=== PATIENT | male | born 1980 | race Caucasian/White ===

== ENCOUNTER 2016-08-21 07:27 | Emergency (ER) | payer BC ==
[2016-08-21 07:35] VITALS: BP 131/88
--- NOTE | 2016-08-21 08:26 | Emergency Department Report ---
ED Back Pain/Injury HPI - General Chief Complaint: Back Pain/Injury Stated Complaint: BACK PAIN Time Seen by Provider: 08/21/16 08:02 Source: patient Limitations: No Limitations - History of Present Illness Initial Comments: PT c/o low back pain x 1 week. PT denies injury or trauma. 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 PT tried Motrin and started taking Naprosyn for the pain. pt rates the pain 10/10. PT denies other symptoms. PT has no hx of back pain. Onset/Timin -: Gradual, week(s) Similar Symptoms Previously: No Place: home Radiation: none Severity: severe Severity scale (0 -10): 10 Quality: aching Consistency: constant Improves With: none Worsens With: movement Associated Symptoms: denies: chest pain, numbness, difficulty walking, difficulty urinating, incontinence, fever/chills, abdominal pain, loss of appetite, nausea/vomiting - Related Data Previous Rx's Medication Instructions Recorded Last Taken Type methOCARBAMOL [Robaxin TAB] 500 mg PO Q6H PRN #15 tablet 08/21/16 Unknown Rx traMADol [Ultram] 50 mg PO Q6HR PRN #12 tablet 08/21/16 Unknown Rx Allergies Allergy/AdvReac Type Severity Reaction Status Date / Time No Known Allergies Allergy Unverified 08/21/16 07:31 ED Review of Systems ROS: Stated complaint: BACK PAIN Other details as noted in HPI Comment: All other systems reviewed and negative Constitutional: denies: fever Cardiovascular: denies: chest pain Gastrointestinal: denies: abdominal pain, nausea, vomiting Musculoskeletal: as per HPI, back pain ED Past Medical Hx - Past Medical History Previous Medical History?: No - Surgical History Past Surgical History?: No - Social History Smoking Status: Current Every Day Smoker Substance Use Type: Alcohol, Marijuana, Non Opiate Pain - Medications Home Medications: Home Medications Medication Instructions Recorded Confirmed Last Taken Type methOCARBAMOL [Robaxin TAB] 500 mg PO Q6H PRN #15 tablet 08/21/16 Unknown Rx traMADol [Ultram] 50 mg PO Q6HR PRN #12 tablet 08/21/16 Unknown Rx ED Physical Exam - General Limitations: No Limitations General appearance: alert, in no apparent distress - Head Head exam: Present: atraumatic, normocephalic, normal inspection - Eye Eye exam: Present: normal appearance, PERRL, EOMI. Absent: conjunctival injection - ENT ENT exam: Present: normal exam, normal external ear exam - Neck Neck exam: Present: normal inspection, full ROM. Absent: tenderness - Respiratory Respiratory exam: Present: normal lung sounds bilaterally. Absent: respiratory distress, chest wall tenderness - Cardiovascular Cardiovascular Exam: Present: regular rate, normal rhythm, normal heart sounds - GI/Abdominal GI/Abdominal exam: Present: soft, normal bowel sounds. Absent: tenderness - Extremities Exam Extremities exam: Present: normal inspection, full ROM - Back Exam Back exam: Present: normal inspection, full ROM, other (pt reports pain across his lumbar spine, no point tenderness noted on exam ). Absent: tenderness, CVA tenderness (R), CVA tenderness (L), muscle spasm, paraspinal tenderness, vertebral tenderness - Expanded Back Exam Expanded Back exam: Absent: saddle anesthesia Back exam: Negative Straight Leg Raising: Left, Right - Neurological Exam Neurological exam: Present: alert, oriented X3, CN II-XII intact, normal gait - Psychiatric Psychiatric exam: Present: normal affect, normal mood - Skin Skin exam: Present: warm, dry, intact ED Course Vital Signs 08/21/16 07:32 Temperature 98.5 F Pulse Rate 86 Respiratory 20 Rate Blood Pressure 131/88 O2 Sat by Pulse 98 Oximetry - Reevaluation(s) Reevaluation #1: 08/21/16 08:25 PT aware of dx and plan of care. PT has no questions at this time. - Pulse Oximetry Interpretation Digit-Finger Initial Pulse Oximetry Readin Actions Taken: none ED Medical Decision Making - Differential Diagnosis strain, ddd, muscle spasm Critical Care Time: No Critical care attestation.: If time is entered above; I have spent that time in minutes in the direct care of this critically ill patient, excluding procedure time. ED Disposition Clinical Impression: Low back pain Qualifiers: Chronicity: acute Back pain laterality: bilateral Sciatica presence: without sciatica Qualified Code(s): M54.5 - Low back pain Disposition: DISCHARGED TO HOME OR SELFCARE Is pt being admited?: No Does the pt Need Aspirin: No Condition: Stable Instructions: Low Back Strain (ED) Additional Instructions: Continue taking your Aleve No driving or ETOH After ultram or robaxin Prescriptions: methOCARBAMOL [Robaxin TAB] 500 mg PO Q6H PRN #15 tablet PRN Reason: Muscle Spasm traMADol [Ultram] 50 mg PO Q6HR PRN #12 tablet PRN Reason: Pain Referrals: PRIMARY CAREMD [Primary Care Provider] - 3-5 Days MOHAMUD MCCLELLAND MD [Staff Physician] - 3-5 Days [facility] [Outside] - 3-5 Days Forms: Work/School Release Form(ED) Time of Disposition: 08:27
== END 2016-08-21 08:29 | disposition home or self-care (01) ==
LOC: ED 07:27
DX: M54.5 Low back pain (principal); F17.200 Nicotine dependence, unspecified, uncomplicated; F12.10 Cannabis abuse, uncomplicated
CPT/HCPCS: 99282

== ENCOUNTER 2016-09-10 06:54 | Emergency (ER) | payer BC ==
[2016-09-10 07:12] VITALS: BP 135/99
--- NOTE | 2016-09-10 09:03 | Emergency Department Report ---
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 Patient stated was here last month and was diagnosed with muscular lower back pain and was prescribed muscle relaxant which subsided his symptoms. Patient states the symptoms has reoccurred for the past 4 days. Patient denies any numbness, tingling, trauma, injury to the area, chest pain, shortness of breath, calf pain , joint swelling, stiff neck, fever, chills, joint pain, headache, stiff neck, nausea or vomiting. 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 Patient states has been lifting a lot of trash bags and may have strained his back that is causing his symptoms. Patient denies any long travels or recent travels. Patient denies any bladder or bowel stability. NKDA. Denies PMH. MD Complaint: back pain -: Gradual, month(s) (1) Similar Symptoms Previously: Yes Place: other (unknown) Radiation: right leg Severity: mild Severity scale (0 -10): 4 Quality: burning, aching Consistency: constant Improves With: none Worsens With: sitting upright, walking Associated Symptoms: denies other symptoms. denies: confusion, weakness, chest pain, numbness, difficulty walking, cough, difficulty urinating, diaphoresis, incontinence, fever/chills, constipation, headaches, abdominal pain, loss of appetite, malaise, nausea/vomiting, rash, seizure, shortness of breath, syncope - Related Data Previous Rx's Medication Instructions Recorded Last Taken Type methOCARBAMOL [Robaxin TAB] 500 mg PO Q6H PRN #15 tablet 08/21/16 Unknown Rx traMADol [Ultram] 50 mg PO Q6HR PRN #12 tablet 08/21/16 Unknown Rx Cyclobenzaprine [Flexeril] 10 mg PO TID PRN #5 tablet 09/10/16 Unknown Rx Ibuprofen [Motrin 600 MG tab] 600 mg PO Q8H PRN #15 tablet 09/10/16 Unknown Rx predniSONE [Deltasone] 20 mg PO BID #10 tab 09/10/16 Unknown Rx Allergies Allergy/AdvReac Type Severity Reaction Status Date / Time No Known Allergies Allergy Unverified 08/21/16 07:31 ED Review of Systems ROS: Stated complaint: RT LEG PAIN Other details as noted in HPI Constitutional: denies: chills, fever Eyes: denies: eye pain, eye discharge, vision change ENT: denies: ear pain, throat pain Respiratory: denies: cough, shortness of breath, wheezing Cardiovascular: denies: chest pain, palpitations Endocrine: no symptoms reported Gastrointestinal: denies: abdominal pain, nausea, diarrhea Genitourinary: denies: urgency, dysuria Musculoskeletal: denies: back pain, joint swelling, arthralgia Skin: denies: rash, lesions Neurological: denies: headache, weakness, paresthesias Psychiatric: denies: anxiety, depression Hematological/Lymphatic: denies: easy bleeding, easy bruising ED Past Medical Hx - Past Medical History Previous Medical History?: Yes Additional medical history: Back Pain 08/21/16 - Surgical History Past Surgical History?: No - Social History Smoking Status: Current Every Day Smoker Substance Use Type: Alcohol - Medications Home Medications: Home Medications Medication Instructions Recorded Confirmed Last Taken Type methOCARBAMOL [Robaxin TAB] 500 mg PO Q6H PRN #15 tablet 08/21/16 Unknown Rx traMADol [Ultram] 50 mg PO Q6HR PRN #12 tablet 08/21/16 Unknown Rx Cyclobenzaprine [Flexeril] 10 mg PO TID PRN #5 tablet 09/10/16 Unknown Rx Ibuprofen [Motrin 600 MG tab] 600 mg PO Q8H PRN #15 tablet 09/10/16 Unknown Rx predniSONE [Deltasone] 20 mg PO BID #10 tab 09/10/16 Unknown Rx ED Physical Exam - General Limitations: No Limitations General appearance: alert, in no apparent distress - Head Head exam: Present: atraumatic, normocephalic, normal inspection - Eye Eye exam: Present: normal appearance, PERRL, EOMI. Absent: scleral icterus, conjunctival injection, nystagmus, periorbital swelling, periorbital tenderness Pupils: Present: normal accommodation - ENT ENT exam: Present: normal exam, normal orophraynx, mucous membranes moist, TM's normal bilaterally, normal external ear exam - Neck Neck exam: Present: normal inspection, full ROM. Absent: tenderness, meningismus, lymphadenopathy, thyromegaly - Respiratory Respiratory exam: Present: normal lung sounds bilaterally. Absent: respiratory distress, wheezes, rales, rhonchi, stridor, chest wall tenderness, accessory muscle use, decreased breath sounds, prolonged expiratory - Cardiovascular Cardiovascular Exam: Present: regular rate, normal rhythm, normal heart sounds. Absent: bradycardia, tachycardia, irregular rhythm, systolic murmur, diastolic murmur, rubs, gallop - GI/Abdominal GI/Abdominal exam: Present: soft, normal bowel sounds. Absent: distended, tenderness, guarding, rebound, rigid, diminished bowel sounds - Rectal Rectal exam: Present: deferred - Extremities Exam Extremities exam: Present: normal inspection, full ROM, normal capillary refill. Absent: tenderness, pedal edema, joint swelling, calf tenderness - Back Exam Back exam: Present: normal inspection, full ROM. Absent: tenderness, CVA tenderness (R), CVA tenderness (L), muscle spasm, paraspinal tenderness, vertebral tenderness, rash noted - Expanded Back Exam Expanded Back exam: Absent: saddle anesthesia Back exam: Negative Straight Leg Raising: Left, Right - Neurological Exam Neurological exam: Present: alert, oriented X3, CN II-XII intact, normal gait - Psychiatric Psychiatric exam: Present: normal affect, normal mood - Skin Skin exam: Present: warm, dry, intact, normal color. Absent: rash ED Course Vital Signs 09/10/16 07:06 Temperature 97.4 F L Pulse Rate 73 Respiratory 16 Rate Blood Pressure 135/99 [Right] O2 Sat by Pulse 99 Oximetry ED Medical Decision Making - Medical Decision Making Ed course: This is a 36-year-old male that presents with chronic lower back pain that is radiating to her right lower extremity. 1- after my physical exam, an x-ray has been obtained of the lumbar sacral region. X-ray result has been notified to the patient with no further was noted by the patient. 2- patient received ibuprofen 600 mg by mouth, prednisone, and Flexeril of discharge and Flexeril for 5 days and was instructed to follow-up with his primary care doctor in 3-5 days for possibility of a further exam such as an MRI. 3- patient was also instructed to observe symptoms of bladder or bowel stability , stiff neck, chest pain, shortness of breath, numbness or tingling, fevers chills and to report back to emergency room as soon as possible. 4- at time time of discharge, the patient does not seem toxic or ill in appearance. No acute signs of distress noted. Patient agrees to discharge treatment plan of care. No further questions noted by the patient. Critical care attestation.: If time is entered above; I have spent that time in minutes in the direct care of this critically ill patient, excluding procedure time. ED Disposition Clinical Impression: Lumbar radiculopathy Low back pain Qualifiers: Chronicity: unspecified Back pain laterality: right Sciatica presence: with sciatica Sciatica laterality: sciatica of right side Qualified Code(s): M54.41 - Lumbago with sciatica, right side Disposition: TO HOME OR SELFCARE Is pt being admited?: No Does the pt Need Aspirin: No Condition: Stable Instructions: Lumbar Radiculopathy (ED), Low Back Strain (ED), Ibuprofen (By mouth) Additional Instructions: Take ibuprofen as prescribed as needed for pain. Take prednisone as prescribed for 5 days. Take Flexeril for 5 days, do not operate heavy machinery while taking Flexeril due to sedation. Follow-up with your primary care doctor in 3-5 days for possibility of a further exam such as an MRI. Observe symptoms of bladder or bowel stability, stiff neck, chest pain, shortness of breath, numbness or tingling, fevers chills and to report back to emergency room as soon as possible. Prescriptions: Cyclobenzaprine [Flexeril] 10 mg PO TID PRN #5 tablet PRN Reason: Muscle Spasm Ibuprofen [Motrin 600 MG tab] 600 mg PO Q8H PRN #15 tablet PRN Reason: Pain predniSONE [Deltasone] 20 mg PO BID #10 tab Referrals: PRIMARY MD SHAKIR [Primary Care Provider] - 3-5 Days [facility] [Outside] - 3-5 Days [facility] [Outside] - 3-5 Days VINCENT SIERRA MD [Staff Physician] - 3-5 Days Forms: Work/School Release Form(ED)
--- NOTE | 2016-09-10 09:06 | XRay Report ---
FINAL REPORT PROCEDURE: XR SPINE LUMBOSACRAL 2-3V TECHNIQUE: AP, lateral, and cone-down lateral views of the lumbar spine are submitted. HISTORY: low back pain COMPARISON: None FINDINGS: There is no evident vertebral body or posterior element fracture. There is no subluxation. There is no blastic or lytic lesion. Intervertebral disc heights and facet joints are maintained. IMPRESSION: Normal examination. If disc herniation, central canal or foraminal stenosis is of concern, consider MRI for further evaluation.
== END 2016-09-10 09:17 | disposition home or self-care (01) ==
LOC: ED 06:54
DX: M54.16 Radiculopathy, lumbar region (principal); F17.200 Nicotine dependence, unspecified, uncomplicated
CPT/HCPCS: 72100; 99283

== ENCOUNTER 2016-12-26 05:10 | Emergency (ER) | payer BC ==
[2016-12-26 05:24] VITALS: BP 136/93
--- NOTE | 2016-12-26 07:45 | Emergency Department Report ---
ED General Adult HPI - General Chief complaint: Wound/Laceration Stated complaint: R PINKIE TOE LACERATION Time Seen by Provider: 12/26/16 07:29 Source: patient Mode of arrival: Ambulatory Limitations: No Limitations - History of Present Illness Initial comments: Patient is a 36 y/o male who presents due to a cut in between the right toes x 5 months. Patient states that he alos noticed change in color of skin. Patient denies any injury to his toes, he denies any swelling, redness or drainage. Patient denies any h/o diabetes. MD Complaint: cut inbetween toes Onset/Timin -: month(s) Location: lower extremity (right toes) Radiation: non-radiation Quality: aching Consistency: constant Improves with: none Worsens with: none Associated Symptoms: rash Treatments Prior to Arrival: none - Related Data Previous Rx's Medication Instructions Recorded Last Taken Type methOCARBAMOL [Robaxin TAB] 500 mg PO Q6H PRN #15 tablet 08/21/16 Unknown Rx traMADol [Ultram] 50 mg PO Q6HR PRN #12 tablet 08/21/16 Unknown Rx Cyclobenzaprine [Flexeril] 10 mg PO TID PRN #5 tablet 09/10/16 Unknown Rx Ibuprofen [Motrin 600 MG tab] 600 mg PO Q8H PRN #15 tablet 09/10/16 Unknown Rx predniSONE [Deltasone] 20 mg PO BID #10 tab 09/10/16 Unknown Rx Cephalexin [Keflex] 500 mg PO Q12HR #14 cap 12/26/16 Unknown Rx Clotrimazole/Betamethasone Dip 1 applicatio TP BID #1 tube 12/26/16 Unknown Rx [Lotrisone Cream] Allergies Allergy/AdvReac Type Severity Reaction Status Date / Time No Known Allergies Allergy Unverified 08/21/16 07:31 ED Review of Systems ROS: Stated complaint: R PINKIE TOE LACERATION Other details as noted in HPI Comment: All other systems reviewed and negative Constitutional: no symptoms reported Respiratory: no symptoms reported Gastrointestinal: denies: abdominal pain, nausea, vomiting Skin: rash, change in color Neurological: denies: headache ED Past Medical Hx - Past Medical History Previous Medical History?: Yes Additional medical history: Back Pain 08/21/16 - Social History Smoking Status: Current Every Day Smoker - Medications Home Medications: Home Medications Medication Instructions Recorded Confirmed Last Taken Type methOCARBAMOL [Robaxin TAB] 500 mg PO Q6H PRN #15 tablet 08/21/16 Unknown Rx traMADol [Ultram] 50 mg PO Q6HR PRN #12 tablet 08/21/16 Unknown Rx Cyclobenzaprine [Flexeril] 10 mg PO TID PRN #5 tablet 09/10/16 Unknown Rx Ibuprofen [Motrin 600 MG tab] 600 mg PO Q8H PRN #15 tablet 09/10/16 Unknown Rx predniSONE [Deltasone] 20 mg PO BID #10 tab 09/10/16 Unknown Rx Cephalexin [Keflex] 500 mg PO Q12HR #14 cap 12/26/16 Unknown Rx Clotrimazole/Betamethasone Dip 1 applicatio TP BID #1 tube 12/26/16 Unknown Rx [Lotrisone Cream] ED Physical Exam - General Limitations: No Limitations General appearance: alert, in no apparent distress - Head Head exam: Present: atraumatic, normocephalic - Eye Eye exam: Present: normal appearance - Expanded Lower Extremity Exam Right Foot/Toe exam: Present: tenderness (patient had macerated skin inbetween the right 3rd, 4th and 5th toe. ) Neuro vascular tendon exam: Present: no vascular compromise - Neurological Exam Neurological exam: Present: alert, oriented X3, normal gait - Psychiatric Psychiatric exam: Present: normal affect, normal mood - Skin Skin exam: Present: rash (right 3rd, 4th and 5th toes), other (patient had macerated skin inbetween the 3rd, 4th, and 5 th toes. there is also skin fissures. no drainage, no erythema, no swelling, no streaking and no fluctuation. ). Absent: dry, intact, normal color ED Course Vital Signs 12/26/16 05:19 Temperature 97.5 F L Pulse Rate 71 Respiratory 20 Rate Blood Pressure 136/93 O2 Sat by Pulse 100 Oximetry ED Medical Decision Making - Medical Decision Making patient was in NAD, patient was discharged with prescription for lotrimin cream to treat tinea pedis and keflex to prevent any skin infection. Patient was informed to clean toes, dry then and apply the cream twice a day about 4 weeks. Patient was informed that it takes a long time for fungal infections to heal. patient was given information to follow up with Dr. Olson with podiatry. - Differential Diagnosis tinea pedis, cellulitis, skin laceration Critical care attestation.: If time is entered above; I have spent that time in minutes in the direct care of this critically ill patient, excluding procedure time. ED Disposition Clinical Impression: Tinea pedis of right foot Disposition: TO HOME OR SELFCARE Is pt being admited?: No Does the pt Need Aspirin: No Condition: Good Instructions: Tinea Pedis (ED) Additional Instructions: wash right foot with soap and water, dry toes and apply lotrimin cream inbetween affected toes morning and at night. take keflex as prescribed and follow up with the provided rib knitter. Return to the ER for any complications or worsening symptoms. Prescriptions: Cephalexin [Keflex] 500 mg PO Q12HR #14 cap Clotrimazole/Betamethasone Dip [Lotrisone Cream] 1 applicatio TP BID #1 tube Referrals: MARGARITA OLSON DPM [Staff Physician] - 3-5 Days Time of Disposition: 07:53
== END 2016-12-26 07:58 | disposition home or self-care (01) ==
LOC: ED 05:10
DX: B35.3 Tinea pedis (principal); F17.200 Nicotine dependence, unspecified, uncomplicated
CPT/HCPCS: 99282

== ENCOUNTER 2018-04-08 23:43 | Emergency (ER) | payer BC ==
--- NOTE | 2018-04-09 01:49 | Emergency Department Report ---
ED ENT HPI - General Chief complaint: Upper Respiratory Infection Stated complaint: SWOLLEN NOSE Time Seen by Provider: 04/09/18 00:16 Source: patient Mode of arrival: Ambulatory Limitations: No Limitations - History of Present Illness MD complaint: other (nasal congestion bilaterally with some swelling noted for the last 1-2 days.) -: Gradual Location: nose Severity: mild Quality: dull Consistency: constant Improves with: none Worsens with: none Associated Symptoms: rhinorrhea. denies: cough, toothache, sore throat, tinnitus, discharge from ear - Related Data Previous Rx's Medication Instructions Recorded Last Taken Type methOCARBAMOL [Robaxin TAB] 500 mg PO Q6H PRN #15 tablet 08/21/16 Unknown Rx traMADol [Ultram] 50 mg PO Q6HR PRN #12 tablet 08/21/16 Unknown Rx Cyclobenzaprine [Flexeril] 10 mg PO TID PRN #5 tablet 09/10/16 Unknown Rx Ibuprofen [Motrin 600 MG tab] 600 mg PO Q8H PRN #15 tablet 09/10/16 Unknown Rx predniSONE [Deltasone] 20 mg PO BID #10 tab 09/10/16 Unknown Rx Clotrimazole/Betamethasone Dip 1 applicatio TP BID #1 tube 12/26/16 Unknown Rx [Lotrisone Cream] cephALEXin [Keflex] 500 mg PO Q12HR #14 cap 12/26/16 Unknown Rx Amoxicillin/Potassium Clav 1 each PO BID #20 tablet 04/09/18 Unknown Rx [Augmentin 875-125 Tablet] Mometasone Furoate [Nasonex] 2 spray NS QDAY #1 bottle 04/09/18 Unknown Rx predniSONE [Deltasone] 20 mg PO QDAY #5 tab 04/09/18 Unknown Rx Allergies Allergy/AdvReac Type Severity Reaction Status Date / Time No Known Allergies Allergy Verified 04/09/18 00:01 ED Dental HPI - General Chief complaint: Upper Respiratory Infection Stated complaint: SWOLLEN NOSE Time Seen by Provider: 04/09/18 00:16 Source: patient Mode of arrival: Ambulatory Limitations: No Limitations - Related Data Previous Rx's Medication Instructions Recorded Last Taken Type methOCARBAMOL [Robaxin TAB] 500 mg PO Q6H PRN #15 tablet 08/21/16 Unknown Rx traMADol [Ultram] 50 mg PO Q6HR PRN #12 tablet 08/21/16 Unknown Rx Cyclobenzaprine [Flexeril] 10 mg PO TID PRN #5 tablet 09/10/16 Unknown Rx Ibuprofen [Motrin 600 MG tab] 600 mg PO Q8H PRN #15 tablet 09/10/16 Unknown Rx predniSONE [Deltasone] 20 mg PO BID #10 tab 09/10/16 Unknown Rx Clotrimazole/Betamethasone Dip 1 applicatio TP BID #1 tube 12/26/16 Unknown Rx [Lotrisone Cream] cephALEXin [Keflex] 500 mg PO Q12HR #14 cap 12/26/16 Unknown Rx Amoxicillin/Potassium Clav 1 each PO BID #20 tablet 04/09/18 Unknown Rx [Augmentin 875-125 Tablet] Mometasone Furoate [Nasonex] 2 spray NS QDAY #1 bottle 04/09/18 Unknown Rx predniSONE [Deltasone] 20 mg PO QDAY #5 tab 04/09/18 Unknown Rx Allergies Allergy/AdvReac Type Severity Reaction Status Date / Time No Known Allergies Allergy Verified 04/09/18 00:01 ED Review of Systems ROS: Stated complaint: SWOLLEN NOSE Other details as noted in HPI Constitutional: denies: chills, fever Eyes: denies: eye pain, eye discharge, vision change ENT: congestion. denies: ear pain, throat pain Respiratory: denies: cough, shortness of breath, wheezing Cardiovascular: denies: chest pain, palpitations Endocrine: no symptoms reported Gastrointestinal: denies: abdominal pain, nausea, diarrhea Genitourinary: denies: urgency, dysuria Musculoskeletal: denies: back pain, joint swelling, arthralgia Skin: denies: rash, lesions Neurological: denies: headache, weakness, paresthesias Psychiatric: denies: anxiety, depression Hematological/Lymphatic: denies: easy bleeding, easy bruising ED Past Medical Hx - Past Medical History Previous Medical History?: No Additional medical history: Back Pain 08/21/16 - Surgical History Past Surgical History?: No - Social History Smoking Status: Current Every Day Smoker Substance Use Type: None - Medications Home Medications: Home Medications Medication Instructions Recorded Confirmed Last Taken Type methOCARBAMOL [Robaxin TAB] 500 mg PO Q6H PRN #15 tablet 08/21/16 Unknown Rx traMADol [Ultram] 50 mg PO Q6HR PRN #12 tablet 08/21/16 Unknown Rx Cyclobenzaprine [Flexeril] 10 mg PO TID PRN #5 tablet 09/10/16 Unknown Rx Ibuprofen [Motrin 600 MG tab] 600 mg PO Q8H PRN #15 tablet 09/10/16 Unknown Rx predniSONE [Deltasone] 20 mg PO BID #10 tab 09/10/16 Unknown Rx Clotrimazole/Betamethasone Dip 1 applicatio TP BID #1 tube 12/26/16 Unknown Rx [Lotrisone Cream] cephALEXin [Keflex] 500 mg PO Q12HR #14 cap 12/26/16 Unknown Rx Amoxicillin/Potassium Clav 1 each PO BID #20 tablet 04/09/18 Unknown Rx [Augmentin 875-125 Tablet] Mometasone Furoate [Nasonex] 2 spray NS QDAY #1 bottle 04/09/18 Unknown Rx predniSONE [Deltasone] 20 mg PO QDAY #5 tab 04/09/18 Unknown Rx ED Physical Exam - General Limitations: No Limitations General appearance: alert, in no apparent distress - Head Head exam: Present: atraumatic, normocephalic - Eye Eye exam: Present: normal appearance - ENT ENT exam: Present: mucous membranes moist, other (medical congestion bilaterally, right greater than left with some green sinus discharge noted. There is some ethmoid sinus tenderness on the right-hand side as well. There is decreased transillumination on the right compared to the left. Neck supple, no lymphadenopathy. Clear with no lymphadenopathy a small effusion to the right) - Neck Neck exam: Present: normal inspection - Respiratory Respiratory exam: Present: normal lung sounds bilaterally. Absent: respiratory distress, wheezes, rales, rhonchi, chest wall tenderness, accessory muscle use - Cardiovascular Cardiovascular Exam: Present: regular rate, normal rhythm. Absent: systolic murmur, diastolic murmur, rubs, gallop - GI/Abdominal GI/Abdominal exam: Present: soft, normal bowel sounds - Rectal Rectal exam: Present: deferred - Extremities Exam Extremities exam: Present: normal inspection - Back Exam Back exam: Present: normal inspection - Neurological Exam Neurological exam: Present: alert, oriented X3 - Psychiatric Psychiatric exam: Present: normal affect, normal mood - Skin Skin exam: Present: warm, dry, intact, normal color. Absent: rash ED Course Vital Signs 04/08/18 23:46 Temperature 98.3 F Pulse Rate 92 H Respiratory 18 Rate Blood Pressure 126/87 O2 Sat by Pulse 96 Oximetry Critical care attestation.: If time is entered above; I have spent that time in minutes in the direct care of this critically ill patient, excluding procedure time. ED Disposition Clinical Impression: Nasal congestion, Sinusitis Disposition: DC-01 TO HOME OR SELFCARE Is pt being admited?: No Does the pt Need Aspirin: No Condition: Stable Instructions: Sinusitis (ED) Referrals: PRIMARY CARE [Primary Care Provider] - 3-5 Days [facility] [Provider Group] - 3-5 Days
== END 2018-04-09 02:25 | disposition home or self-care (01) ==
LOC: ED 23:43
CPT/HCPCS: 99282

== ENCOUNTER 2018-10-21 23:55 | Emergency (ER) | payer BC ==
[2018-10-22 00:11] VITALS: BP 134/93
--- NOTE | 2018-10-22 01:19 | Ultrasound Report ---
ULTRASOUND SCROTUM INDICATION: Unspecified testicular pain. Hematospermia. COMPARISON None available. FINDINGS -- RIGHT TESTIS: Size: 3.1 x 2.5 x 4.4 cm. Echotexture: Normal. Color Doppler Flow: Normal. Lesions: None. EPIDIDYMIS: Size: Normal. Echotexture: Normal. Color Doppler Flow: Normal. Lesions: None. Hydrocele: None. Varicocele: None. Additional Findings: A nonspecific calcification is noted centrally along the right testicle. FINDINGS -- LEFT TESTIS: Size: 4.3 x 2.8 x 3.2 cm. Echotexture: Normal. Color Doppler Flow: Normal. Lesions: None. EPIDIDYMIS: Size: Normal. Echotexture: Normal. Color Doppler Flow: Normal. Lesions: None. Hydrocele: A minimal amount of fluid is seen around the left testis. Varicocele: None. Additional Findings: None. IMPRESSION: 1. No acute sonographic abnormality of the scrotum. 2. Nonspecific minimal amount of fluid around the left testicle. Signer Name: Bry Killian MD Signed: 10/22/2018 1:15 AM Workstation Name: [id number]
[2018-10-22] MEDS ORDERED: XYLOCAINE 1% MPF 5 mL INFILTRATI ONE (01:40)
[2018-10-22] MEDS ORDERED: ZITHROMAX PO ONE (01:40)
[2018-10-22] MEDS ORDERED: ROCEPHIN IM ONE (01:40)
--- NOTE | 2018-10-22 01:41 | Emergency Department Report ---
ED Dysuria HPI - HPI Chief Complaint: Urogenital-Male Stated Complaint: BLOOD IN SEMEN Time Seen by Provider: 10/22/18 01:39 Duration: 2 Days Location of Discomfort: Urethra (dysuria) Severity: Mild Symptoms: Dysuria: Yes, Frequency: No, Suprapubic Pain: No, Flank Pain: No, Fever: No, Hematuria: No, Abdominal Pain: No, Previous UTI's: No Other History: COMES TO ER WITH BLOOD IN SEMEN AND CONCERN FOR STI. NO TESTICULAR PAIN PER SE. AMBULATORY. NON TOXIC ED Review of Systems ROS: Stated complaint: BLOOD IN SEMEN Other details as noted in HPI Comment: All other systems reviewed and negative ED Past Medical Hx - Past Medical History Previous Medical History?: Yes Additional medical history: Back Pain 08/21/16 - Surgical History Past Surgical History?: No - Social History Smoking Status: Current Every Day Smoker - Medications Home Medications: Home Medications Medication Instructions Recorded Confirmed Last Taken Type Doxycycline Hyclate [Doxycycline 100 mg PO Q12HR #20 tab 10/22/18 Unknown Rx Hyclate TAB] Dysuria Exam - Exam General: Vital signs noted. No distress. Alert and acting appropriately. Exam: Yes Moist Mucous Membranes, No CVA Tenderness, No Abdominal Tenderness, No Rigidity or Guarding ED Course Vital Signs 10/22/18 00:08 Temperature 98.2 F Pulse Rate 83 Respiratory 16 Rate Blood Pressure 134/93 O2 Sat by Pulse 98 Oximetry ED Medical Decision Making - Medical Decision Making PT COMES IN WITH TINGLING AND PENILE DC NOTED SOME BLOOD IN SEMEN CONCERNED FOR STI UA/ GC EMPIRIC TREATMENT DC HOME ON DOXY US NOTED DC HOME WITH DC PLAN OF CARE. FOLLOW UP PCP/UROLOGY Vital Signs 10/22/18 00:08 Temperature 98.2 F Pulse Rate 83 Respiratory 16 Rate Blood Pressure 134/93 O2 Sat by Pulse 98 Oximetry - Differential Diagnosis STD Critical care attestation.: If time is entered above; I have spent that time in minutes in the direct care of this critically ill patient, excluding procedure time. ED Disposition Clinical Impression: STD (male), Epididymitis Disposition: DC-01 TO HOME OR SELFCARE Is pt being admited?: No Does the pt Need Aspirin: No Condition: Stable Instructions: Safe Sex (ED), Epididymitis (ED) Prescriptions: Doxycycline Hyclate [Doxycycline Hyclate TAB] 100 mg PO Q12HR #20 tab Referrals: ADDIE ALVAREZ MD [Primary Care Provider] - 3-5 Days ERIC LIMA MD [Staff Physician] - 3-5 Days Forms: STI Treatment and Prevention Time of Disposition: 01:45
[2018-10-22 02:40] LABS: Bilirubin,Urine NEG (Negative); Blood,Urine SM (Negative); Color,Urine Yellow (Yellow); Hyaline Casts,Urine 4 /LPF; Mucus,Urine FEW /HPF; Protein,Urine <15 mg/dL mg/dL (Negative); Urobilinogen,Urine < 2.0 mg/dL (<2.0)
== END 2018-10-22 02:24 | disposition home or self-care (01) ==
LOC: ED 23:55
DX: N45.1 Epididymitis (principal); M54.9 Dorsalgia, unspecified; F17.200 Nicotine dependence, unspecified, uncomplicated; Z79.899 Other long term (current) drug therapy
CPT/HCPCS: 81001; 87591; 93975; 96372; 99284; J0696

== ENCOUNTER 2019-08-20 13:05 | Emergency (ER) | payer BC ==
--- NOTE | 2019-08-20 13:56 | Emergency Department Report ---
Minor Respiratory - HPI Chief Complaint: Upper Respiratory Infection Stated Complaint: CP Time Seen by Provider: 08/20/19 13:52 Duration: 3 Days Pain Location: Chest Severity: mild Minor Respiratory: Yes Able to Tolerate Fluids, Yes Cough, No Rhinorrhea, No Sore Throat, No Ear Pain, No Sick Contacts, No Hemoptysis, No Chest Pain, No Shortness of Breath Other History: Patient is a 39-year-old -[place] male who comes to the ER with concerns because he has a cough associated with chest pain and he is concerned that he has COVID. Patient is a smoker, drinks alcohol and uses marijuana. He denies fever or chills. He denies shortness of breath. He has no history of hypertension but his blood pressure was mildly elevated in triage. He states that he only has pain when he coughs. He has no fever or chills. However, his family was concerned that he had CoVID so he came to the emergency room. ED Review of Systems ROS: Stated complaint: CP Other details as noted in HPI Comment: All other systems reviewed and negative ED Past Medical Hx - Past Medical History Previous Medical History?: No Additional medical history: Back Pain 08/21/16 - Surgical History Past Surgical History?: No - Family History Family history: no significant - Social History Smoking Status: Current Every Day Smoker Substance Use Type: Marijuana - Medications Home Medications: Home Medications Medication Instructions Recorded Confirmed Last Taken Type Doxycycline Hyclate [Doxycycline 100 mg PO Q12HR #20 tab 10/22/18 Unknown Rx Hyclate TAB] Minor Respiratory Exam - Exam General: Vital signs noted. No distress. Alert and acting appropriately. HEENT: Yes Moist Mucous Membranes, No Pharyngeal Erythema, No Pharyngeal Exudates, No Rhinorrhea, No Conjuctival Injection, No Frontal Tenderness, No Maxillary Tenderness Ear: Neither TM Bulge, Neither TM Erythema, Neither EAC Pain, Neither EAC Discharge Neck: Yes Supple, No Adenopathy Lungs: Yes Good Air Exchange, No Wheezes, No Ronchi, No Stridor, No Cough, No Labored Respirations, No Retractions, No Use of Accessory Muscles, No Other Abnormal Lung Sounds Heart: Yes Regular, No Murmur Abdomen: Yes Normal Bowel Sounds, No Tenderness, No Peritoneal Signs Skin: No Rash, No Edema Neurologic: Alert and oriented, no deficits. Musculoskeletal: Unremarkable. ED Course Vital Signs 08/20/19 13:12 Temperature 98 F Pulse Rate 79 Respiratory 18 Rate Blood Pressure 159/102 O2 Sat by Pulse 100 Oximetry ED Medical Decision Making - Radiology Data Radiology results: report reviewed, image reviewed Negative - Medical Decision Making Vital Signs 08/20/19 08/20/19 13:12 14:54 Temperature 98 F Pulse Rate 79 73 Respiratory 18 18 Rate Blood Pressure 159/102 Blood Pressure 160/98 [Right] O2 Sat by Pulse 100 100 Oximetry Chest x-ray is negative. Patient is being discharged home with [id number] sinus symptom relief. Patient has been sure that he does not have active COVID requiring hospitalization or treatment. patient has been given PCP follow-up. He verbalizes understanding. Blood pressure was rechecked on discharge and is normalized. - Differential Diagnosis Rule out pneumonia Critical care attestation.: If time is entered above; I have spent that time in minutes in the direct care of this critically ill patient, excluding procedure time. ED Disposition Clinical Impression: Upper respiratory infection with cough and congestion, Elevated blood pressure reading Disposition: TO HOME OR SELFCARE Is pt being admited?: No Does the pt Need Aspirin: No Condition: Stable Instructions: Upper Respiratory Infection (ED) Additional Instructions: over the counter sign and symptom relief delsym for cough motrin or tylenol for pain follow up with pcp referral below Referrals: EMILY SCHILLING MD [Primary Care Provider] - 3-5 Days ADDIE ALVAREZ MD [Staff Physician] - 3-5 Days Time of Disposition: 14:21
--- NOTE | 2019-08-20 14:21 | XRay Report ---
CHEST 2 VIEWS INDICATION / CLINICAL INFORMATION: cough. COMPARISON: None available. FINDINGS: SUPPORT DEVICES: None. HEART / MEDIASTINUM: No significant abnormality. LUNGS / PLEURA: No significant pulmonary or pleural abnormality. No pneumothorax. ADDITIONAL FINDINGS: No significant additional findings. IMPRESSION: 1. No acute findings. Signer Name: Nakul Balderas MD Signed: 08/20/2019 2:16 PM Workstation Name: [id number]
[2019-08-20 14:55] VITALS: BP 160/98
== END 2019-08-20 14:55 | disposition home or self-care (01) ==
LOC: ED 13:05
DX: J06.9 Acute upper respiratory infection, unspecified (principal); R03.0 Elevated blood-pressure reading, without diagnosis of hypertension; F17.200 Nicotine dependence, unspecified, uncomplicated; Z79.899 Other long term (current) drug therapy
CPT/HCPCS: 71046

== ENCOUNTER 2020-07-13 16:07 | Emergency (ER) | payer BC ==
[2020-07-13 17:14] VITALS: BP 127/95
--- NOTE | 2020-07-13 19:20 | Emergency Department Report ---
Chief Complaint: Urogenital-Male Stated Complaint: DISCHARGE Time Seen by Provider: 07/13/20 19:16 - HPI History of Present Illness: Patient is a 39-year-old male presents emergency room for clear penile discharge for 2 weeks. He denies any abdominal pain, fever, pain or swelling the testicles, vomiting, diarrhea, dysuria, urinary symptoms, urinary retention. He states he is sexually active that protection. No past medical history. No allergies medications. Vitals are stable On exam: Non toxic appearing, no acute distress atraumatic, normocephalic normal appearance of the eyes, EOMI, no periorbital edema or ecchymosis moist mucus membranes No respiratory distress, no accessory muscle use A&O x4, no focal neuro deficit, Normal gait Patient is presenting for penile discharge for 2 weeks Given that he is having unprotected intercourse, this is likely secondary to STD He denies any abdominal pain, fever, pain or swelling the testicles, vomiting, diarrhea, dysuria, urinary symptoms, urinary retention. This hospital policy does not test or treat for uncomplicated male STDs Patient given the appropriate resources Discuss strict return precautions in detail with patient Medical screening examination performed and there is no threat to life or limb at this time - Exam Vital Signs: Vital Signs 07/13/20 17:12 Temperature 98.1 F Pulse Rate 68 Respiratory 16 Rate Blood Pressure 127/95 [Right] O2 Sat by Pulse 98 Oximetry MSE screening note: Focused history and physical exam performed. Due to findings the following was ordered: ED Disposition for MSE Clinical Impression: Penile discharge Disposition: Z-07 MED SCREENING EXAM-LEFT Condition: Stable Instructions: Safe Sex Additional Instructions: Please follow-up with a clinic or the health department to have a full STD panel. Have any partner tested and treated as well. Avoid sexual intercourse. Return to emergency room for new worsening symptoms. [employer] Address: [address] [place] [id number] Referrals: [facility] [Outside] - 2-3 Days Time of Disposition: 19:19 Print Language: SLOVAK
== END 2020-07-13 20:00 | disposition left against medical advice (07) ==
LOC: ED 16:07
DX: R36.9 Urethral discharge, unspecified (principal); Z53.21 Procedure and treatment not carried out due to patient leaving prior to being seen by health care provider

== ENCOUNTER 2020-09-17 22:34 | Emergency (ER) | payer BC ==
[2020-09-18] MEDS ORDERED: HYDROcodone/ACETAMINOPHEN 10-325MG TAB PO ONE (00:06)
[2020-09-18] MEDS ORDERED: ALUM-MAG HYDROXIDE-SIMETHICONE 200-200-20MG/5ML ORAL LIQD 30 ML PO ONE (00:06)
[2020-09-18 00:13] LABS: Basophils # (Auto) 0.2 K/mm3 (0.0-0.1); Eosinophils # (Auto) 0.1 K/mm3 (0.0-0.4); Eosinophils % (Auto) 0.8 % (0.0-4.3); Hematocrit 42.3 % (35.5-45.6); Hemoglobin 14.3 gm/dl (11.8-15.2); Lymphocytes # (Auto) 2.5 K/mm3 (1.2-5.4); Lymphocytes % (Auto) 30.7 % (13.4-35.0); Mean Corpuscular HGB Conc 34 % (32-34); Mean Corpuscular Volume 86 fl (84-94); Monocytes # (Auto) 0.6 K/mm3 (0.0-0.8); Monocytes % (Auto) 7.4 % (0.0-7.3); Platelet Count 218 K/mm3 (140-440); Red Blood Count 4.91 M/mm3 (3.65-5.03); Red Cell Distribution Width 13.1 % (13.2-15.2)
[2020-09-18 00:16] LABS: Bilirubin,Urine NEG (Negative); Blood,Urine NEG (Negative); Color,Urine Straw (Yellow); Mucus,Urine FEW /HPF; Protein,Urine <15 mg/dL mg/dL (Negative); Urobilinogen,Urine < 2.0 mg/dL (<2.0)
--- NOTE | 2020-09-18 00:21 | XRay Report ---
ABDOMEN 1 VIEW 09/17/2020 11:09 PM INDICATION / CLINICAL INFORMATION: abd pain. COMPARISON: None available. FINDINGS: TUBES / LINES: None. BOWEL GAS PATTERN: No significant abnormality. FREE AIR / EXTRALUMINAL GAS: None. ADDITIONAL FINDINGS: No significant additional findings. IMPRESSION: 1. No significant abnormality. Signer Name: Giorgio Crews MD Signed: 09/18/2020 12:16 AM Workstation Name: [id number]
[2020-09-18 00:37] LABS: Alanine Aminotransferase 17 units/L (7-56); Albumin 4.4 g/dL (3.9-5); BUN/Creatinine Ratio 19; Blood Urea Nitrogen 25 mg/dL (9-20); Calcium 9.6 mg/dL (8.4-10.2); Hemolysis Index 28
--- NOTE | 2020-09-18 03:26 | Emergency Department Report ---
ED Abdominal Pain HPI - General Chief Complaint: Abdominal Pain Stated Complaint: STOMACH PAIN Time Seen by Provider: 09/17/20 23:52 Source: patient Mode of arrival: Ambulatory Limitations: No Limitations - History of Present Illness MD Complaint: abdominal pain -: Gradual, week(s) (1) Severity scale (0 -10): 1 - Related Data Previous Rx's Medication Instructions Recorded Last Taken Type Doxycycline Hyclate [Doxycycline 100 mg PO Q12HR #20 tab 10/22/18 Unknown Rx Hyclate TAB] Dicyclomine [Bentyl] 20 mg PO QID #30 tablet 09/18/20 Unknown Rx Allergies Allergy/AdvReac Type Severity Reaction Status Date / Time No Known Allergies Allergy Verified 04/09/18 00:01 ED Review of Systems ROS: Stated complaint: STOMACH PAIN Other details as noted in HPI Constitutional: denies: chills, fever Eyes: denies: eye pain, eye discharge, vision change ENT: denies: ear pain, throat pain Respiratory: denies: cough, shortness of breath, wheezing Cardiovascular: denies: chest pain, palpitations Endocrine: no symptoms reported Gastrointestinal: abdominal pain. denies: nausea, diarrhea Genitourinary: denies: urgency, dysuria Musculoskeletal: denies: back pain, joint swelling, arthralgia Skin: denies: rash, lesions Neurological: denies: headache, weakness, paresthesias Psychiatric: denies: anxiety, depression Hematological/Lymphatic: denies: easy bleeding, easy bruising ED Past Medical Hx - Past Medical History Previous Medical History?: No Additional medical history: Back Pain 08/21/16 - Surgical History Past Surgical History?: No - Social History Smoking Status: Current Every Day Smoker Substance Use Type: Marijuana - Medications Home Medications: Home Medications Medication Instructions Recorded Confirmed Last Taken Type Doxycycline Hyclate [Doxycycline 100 mg PO Q12HR #20 tab 10/22/18 Unknown Rx Hyclate TAB] Dicyclomine [Bentyl] 20 mg PO QID #30 tablet 09/18/20 Unknown Rx ED Physical Exam - General Limitations: No Limitations General appearance: alert, in no apparent distress - Head Head exam: Present: atraumatic, normocephalic - Eye Eye exam: Present: normal appearance - ENT ENT exam: Present: mucous membranes moist - Neck Neck exam: Present: normal inspection - Respiratory Respiratory exam: Present: normal lung sounds bilaterally. Absent: respiratory distress - Cardiovascular Cardiovascular Exam: Present: regular rate, normal rhythm. Absent: systolic murmur, diastolic murmur, rubs, gallop - GI/Abdominal GI/Abdominal exam: Present: soft, normal bowel sounds - Rectal Rectal exam: Present: deferred - Extremities Exam Extremities exam: Present: normal inspection - Back Exam Back exam: Present: normal inspection - Neurological Exam Neurological exam: Present: alert, oriented X3 - Psychiatric Psychiatric exam: Present: normal affect, normal mood - Skin Skin exam: Present: warm, dry, intact, normal color. Absent: rash ED Course Vital Signs 09/18/20 09/18/20 00:01 03:53 Temperature 98.1 F 98 F Pulse Rate 78 78 Respiratory 12 17 Rate Blood Pressure 123/88 Blood Pressure 132/86 [Right] O2 Sat by Pulse 99 99 Oximetry ED Medical Decision Making - Lab Data Result diagrams: 09/18/20 00:01 09/18/20 00:01 Critical care attestation.: If time is entered above; I have spent that time in minutes in the direct care of this critically ill patient, excluding procedure time. ED Disposition Clinical Impression: Abdominal pain Qualifiers: Abdominal location: generalized Qualified Code(s): R10.84 - Generalized abdominal pain Disposition: - TO HOME OR SELFCARE Is pt being admited?: No Does the pt Need Aspirin: No Condition: Stable Instructions: Abdominal Pain, Adult, [id number] Prescriptions: Dicyclomine [Bentyl] 20 mg PO QID #30 tablet Referrals: JALIL SALGADO MD [Primary Care Provider] - 3-5 Days
[2020-09-18 03:54] VITALS: BP 132/86
== END 2020-09-18 03:55 | disposition home or self-care (01) ==
LOC: ED 22:34
DX: R10.9 Unspecified abdominal pain (principal); F17.200 Nicotine dependence, unspecified, uncomplicated; F12.10 Cannabis abuse, uncomplicated; Z79.899 Other long term (current) drug therapy
CPT/HCPCS: 36415; 74018; 80053; 81001; 83690; 85025